=== PATIENT | female | born 1950 | race Hispanic/Latino ===

== ENCOUNTER 2016-11-24 06:24 | Inpatient (IN) | payer MEDICARE, OTHER ==
--- NOTE | 2016-11-24 07:40 | CP.PCM.HP ---
History of Present Illness - History of Present Illness History of Present Illness: PCP: Dr Frye Chief complaint: Painful right shoulder HPI: 66 years old female with hx of HLD and Right total shoulder replacement comes for an elective Revision of the Right Total shoulder replacement. She refers some pain to the right shoulder, no fever, SOB, chest pain, nausea, vomits nor diarrhea. PMH: HLD; Cataract of the right eye;Arthritis, Back pain PSH: Cesarian Section X3; Cholecystectomy; Rotator cuff repair right shoulder SH; No smoking of cigarettes; Occasional Alcohol; no illegal drug use; live with family; FH: Unknown Family Hx Allergies: NKDA Present on Admission - Present on Admission Any Indicators Present on Admission: No History of DVT/PE: No History of Uncontrolled Diabetes: No Urinary Catheter: No Decubitus Ulcer Present: No Review of Systems - Constitutional Constitutional: absent: Anorexia, Chills, Fever, Lethargy - EENT Eyes: Requires Corrective Lenses. absent: Diplopia, Floaters, Sees Flashes Ears: absent: Decreased Hearing, Ear Discharge, Ear Pain, Tinnitus Nose/Mouth/Throat: absent: Epistaxis, Nasal Congestion, Nasal Discharge, Sinus Pain, Sinus Pressure - Cardiovascular Cardiovascular: absent: Chest Pain, Dyspnea, Edema - Respiratory Respiratory: absent: Cough, Dyspnea, Wheezing, Chest Congestion - Gastrointestinal Gastrointestinal: absent: Constipation, Diarrhea, Melena, Nausea, Vomiting - Genitourinary Genitourinary: absent: Dysuria, Flank Pain, Hematuria, Urinary Frequency - Musculoskeletal Musculoskeletal: absent: Back Pain, Neck Pain Additional comments: Pain to the right shoulder - Integumentary Integumentary: absent: Pruritus, Rash, Skin Ulcer, Sores, Striae, Swelling - Neurological Neurological: absent: Confusion, Dizziness, Focal Weakness, Weakness - Psychiatric Psychiatric: absent: Anxiety, Depression, Panic Attacks - Endocrine Endocrine: absent: Palpitations, Polydipsia, Polyphagia, Polyuria - Hematologic/Lymphatic Hematologic: absent: Easy Bleeding, Easy Bruising Past Patient History - Past Medical History & Family History Past Medical History?: Yes - Past Social History Smoking Status: Never Smoked Chewing Tobacco Use: Yes Alcohol: Social Drugs: Denies Home Situation {Lives}: With Family - CARDIAC Hx Cardiac Disorders: Yes Hx Hypercholesterolemia: Yes - PULMONARY Hx Respiratory Disorders: No - NEUROLOGICAL Hx Neurological Disorder: No - HEENT Hx HEENT Problems: Yes Hx Cataracts: Yes (O.D) - RENAL Hx Chronic Kidney Disease: No - ENDOCRINE/METABOLIC Hx Endocrine Disorders: No - HEMATOLOGICAL/ONCOLOGICAL Hx Blood Disorders: No - INTEGUMENTARY Hx Dermatological Problems: No - MUSCULOSKELETAL/RHEUMATOLOGICAL Hx Musculoskeletal Disorders: Yes Hx Arthritis: Yes Hx Back Pain: Yes Hx Osteoarthritis: Yes Other/Comment: LIMIT JOINT MOTION .HERNIATED DISC - GASTROINTESTINAL Hx Gastrointestinal Disorders: No - GENITOURINARY/GYNECOLOGICAL Hx Genitourinary Disorders: No - PSYCHIATRIC Hx Psychophysiologic Disorder: No - SURGICAL HISTORY Hx Surgeries: Yes Hx Section: Yes (X4) Hx Cholecystectomy: Yes Hx Orthopedic Surgery: Yes (ROTATOR CUFF REPAIR RIGHT SHOULDER) Other/Comment: HERNIATED DISC RIGHT SIDE X3 - ANESTHESIA Hx Anesthesia: Yes Hx Anesthesia Reactions: No Hx Malignant Hyperthermia: No Has any member of the family had a problem w/ anesthesia?: No Meds Allergies/Adverse Reactions: Allergies Allergy/AdvReac Type Severity Reaction Status Date / Time No Known Allergies Allergy Verified 11/11/16 14:17 Physical Exam - Constitutional Appears: No Acute Distress - Head Exam Head Exam: ATRAUMATIC - Eye Exam Eye Exam: EOMI, Normal appearance Pupil Exam: NORMAL ACCOMODATION, PERRL - ENT Exam ENT Exam: Mucous Membranes Moist, Normal Exam, Normal External Ear Exam, Normal Oropharynx - Neck Exam Neck exam: Positive for: Full Rom, Normal Inspection. Negative for: Lymphadenopathy, Tenderness - Respiratory Exam Respiratory Exam: Clear to Auscultation Bilateral. absent: Rales, Rhonchi, Wheezes - Cardiovascular Exam Cardiovascular Exam: REGULAR RHYTHM, RRR, +S1, +S2. absent: JVD - GI/Abdominal Exam GI & Abdominal Exam: Normal Bowel Sounds, Soft. absent: Mass, Tenderness - Rectal Exam Rectal Exam: Deferred - Extremities Exam Extremities exam: Positive for: normal inspection. Negative for: calf tenderness, joint swelling, tenderness - Back Exam Back exam: NORMAL INSPECTION. absent: CVA tenderness (L), CVA tenderness (R) - Neurological Exam Neurological exam: Alert, CN II-XII Intact, Oriented x3, Reflexes Normal - Psychiatric Exam Psychiatric exam: Normal Affect, Normal Mood - Skin Skin Exam: Dry, Intact, Normal Color, Warm Results - Vital Signs Recent Vital Signs: Last Vital Signs Temp 98.4 F 11/24/16 07:34 Pulse 80 08/24/17 07:34 Resp 18 11/24/16 07:34 BP 143/85 11/24/16 07:34 Pulse Ox 98 11/24/16 07:34 - Labs Labs: PND Assessment & Plan - Assessment and Plan (Free Text) Plan: 66 years old female with hx of HLD and Right total shoulder replacement comes for an elective Revision of the Right Total shoulder replacement. She refers some pain to the right shoulder, no fever, SOB, chest pain, nausea, vomits nor diarrhea. #. Painful right Shoulder for Elective Right Total Shoulder replacement revision - Consult Orth[facility]edia Dr Bustamante - Pain management #. DVT Prophylaxis Post surgery #. HLD - lipitor #. DVT prophylaxis post surgery #. Code Scale: Full - Date & Time Date: 11/24/16 Time: 07:40
[2016-11-24] MEDS ORDERED: Liquid Adhesive TOP ONE (07:48)
[2016-11-24] MEDS ORDERED: Bacitracin Ointment 30 GM TUBE ONE (07:48)
[2016-11-24] MEDS ORDERED: Thrombin Topical 5,000 IU Spray Kit ONE (07:49)
[2016-11-24] MEDS ORDERED: Absorbable Gelatin Sponge Size 100 ONE (07:49)
[2016-11-24] MEDS ORDERED: EPINEPHrine 1 mg/ml (1:1000) Inj ONE (07:49)
[2016-11-24] MEDS ORDERED: Lactated Ringer's 1,000 ML IV ONE ×3 (08:00→16:30)
[2016-11-24 10:55] LABS: RBC URINE 3 /hpf (0-3); URINE BACTERIA FEW (<OCC); URINE BILIRUBIN NEGATIVE (NEGATIVE); URINE BLOOD NEGATIVE (NEGATIVE); URINE COLOR YELLOW (YELLOW); URINE GLUCOSE (UA) NEG (Normal); URINE KETONE NEGATIVE (NEGATIVE); URINE LEUKOCYTE ESTERASE LARGE Leu/uL (Negative); URINE PROTEIN 30 mg/dL (NEGATIVE); URINE UROBILINOGEN 0.2-1.0 mg/dL (0.2-1.0); WBC CLUMPS MANY /hpf; WBC URINE 1034 /hpf (0-5)
[2016-11-24] MEDS ORDERED: Propofol 10 mg/ml Inj (20 ML) ONE ×2 (11:05→15:57)
[2016-11-24] MEDS ORDERED: Midazolam 2 MG/2 ML VIAL ONE (11:06)
[2016-11-24] MEDS ORDERED: Rocuronium 10 mg/ml (5 ml) ONE ×2 (11:06→13:59)
[2016-11-24] MEDS ORDERED: Sodium Chloride 0.9% 1,000 ML IV ONE (13:00)
[2016-11-24] MEDS ORDERED: EPINEPHrine 1 mg/ml (1:1000) Inj IV ONE (13:58)
[2016-11-24] MEDS ORDERED: Dexamethasone 4 mg/1 ml ONE (14:08)
[2016-11-24] MEDS ORDERED: Sevoflurane - Inhalation Anesthetic Liq (250 ml) ONE (14:10)
[2016-11-24] MEDS ORDERED: Neostigmine Methylsulfate 3mg/3ml Syringe IV ONE (15:26)
[2016-11-24] MEDS ORDERED: Neostigmine Methylsulfate 2 MG/2 ML ML IV ONE (15:26)
[2016-11-24] MEDS ORDERED: HYDROmorphone 0.5 mg/0.5 ml ISec ONE (16:41)
[2016-11-24] MEDS ORDERED: HYDROmorphone 0.5 mg/0.5 ml ISec IVP ONE ×2 (16:45→17:15)
[2016-11-24] MEDS ORDERED: HYDROmorphone 0.5 mg/0.5 ml ISec IVP PRN (16:55)
[2016-11-24] MEDS ORDERED: DiphenhydrAMINE 50 mg/ml Inj IVP PRN (16:55)
--- NOTE | 2016-11-24 16:55 | PCM.ANESB1 ---
Interscalene Block - Brachial Plexus Date of Procedure: 11/24/16 Anesthesiologist: mathew Pre-Procedure Diagnosis: djd/oa s/p right total shoulder Post-Procedure Diagnosis: same Procedure Performed: Interscalene Block of Brachial Plexus Right - Procedure Interscalene Block of Brachial Plexus: This procedure was explained to the patient that it is for post-operative pain management. Consent was obtained after a thorough discussion with the patient regarding the benefits and possible complications of local anesthetic block of the Brachial Plexus at the Interscalene area. The patient was brought to the Operating Room and standard monitors were applied. Time out was held with the circulating nurse to confirm the correct surgery and appropriate block. The patient's head was gently rotated away from the ___r___operative shoulder and the anterior scalene groove was carefully palpated. The ultrasound transducer was then applied to the skin in the transverse plane and the brachial plexus was visualized lateral to the carotid artery and in between the anterior and middle scalene muscles. After identification,the anterior lateral portion of the neck was prepped with Betadine solution three times. At this point, a # 22 gauge Stimuplex 2 inches insulated needle was inserted into the interscalene groove and directed in a caudal and midline direction. The needle was inserted lateral to the ultrasound transducer in-plane towards the brachial plexus in a [id number] direction. Needle advancement was performed carefully under direct ultrasound visualization. After repeated negative aspiration,___20__cc of ,__.5% bupi were injected Under ultrasound guidance the local anesthetics were observed surrounding the roots of the brachial plexus. The needle was removed intact and sterile dressing was applied. The patient had stable vital signs, was conscious and in no apparent distress. The patient tolerated the interscalene block of the bracheal plexus well with stable vital signs.
[2016-11-24] MEDS ORDERED: ceFAZolin 2 GM in Sodium Chloride 0.9% 100 ML IVPB SCH (17:00)
--- NOTE | 2016-11-24 17:17 | RAD ---
PROCEDURE: Right shoulder dated 11/24/2016 HISTORY: post op COMPARISON: No prior study available comparison TECHNIQUE: Single AP erect view of the right shoulder performed. FINDINGS: Patient is status right total right shoulder arthroplasty. There is satisfactory alignment. Postoperative changes include infiltration and subcutaneous air. Overlying skin elodia are present. IMPRESSION: Status post right total right shoulder arthroplasty with satisfactory alignment. Additionally, unremarkable postoperative changes as detailed above.
--- NOTE | 2016-11-24 18:41 | PCM.SURG1 ---
Surgeon's Initial Post Op Note - Surgeon's Notes Surgeon: Robby Spring Floor Service Worker: SEBASTIAN Oquendo/2nd assist Bashir Zee Type of Anesthesia: General Endo, Block Regional Anesthesia Administered By: Dr Altamirano Pre-Operative Diagnosis: Severe arthritis R shoulder (rotator cuff arthropathy) . retained hardware- s/p failed shoulder surgery Operative Findings: as above Post-Operative Diagnosis: same Operation Performed: R Total shoulder replacement. repair R Rotataor cuff. Biceps tenodesis. removal foreign body (deep). arthrotomy/excision glenoid labral tear. Operative in dication: Rosaline Leija is a 66 yo female with severe pain and rstricted ROM R shoulder. Pt is refractory to conservatyive approach, consisiting of Nasiads, activity modification and therapy. Pt had failed rotator cuff repair 7 yhrs ago and now has posttraumatic O/A/rotator cuff arthroparthy R shoulder. Operative procedure: after having obtained informed consent/after thoroughly discussing pros/cons risks and benefits of surgical approach, possibility of mechanical failure, thromboembolic diease, stiffness nerve damage, the pt identiufied as Rosaline Leija is placed in the modified bose chair position. All bony prominences are well padded. It should be noted that the pt presented to the ofc with a high riding humeral head and evidence of humeral subluxation, and partial axillary nerve injury. Pt demands shoulder replacement at this point in time. After the satisfactory induction of GETA/ regional block; after having identified side/site and procedure in critical pause/time out, after having obtained informed consent, after steriley prepping and draping, the Right upper ext is prepped and draped and positioned for Shoulder replacement surgey. An incision is described from the distal 1/3 of the clavicle to the deltoid tuberosity. The pt presents with a high riding humeral head/ stron gly positive fluid sign, and severe pain and restricted ROM with crepitus. The skin incision is insufflated with a solution of epi and saline. The skin incision is insufflated with same. Skin incision is carried down thru skin and subcutaneous tissue. DEeltopectoral interval is identified with the upper ext in external rotation. The interval is developed; the clavipectoral fascia is identiifed. and the modified pediatric zuri retractor is placed deep to the strap muscles. With the radha in external rotation, an incision is accomplished 1 cm medial to lesser tuberosity. lower subscapular vessels are cauterized. with external rotation,with great care taken to protect the axillary nerve, the humeral head is disclocated. There are found to be marked contractures. The intamedullary canal is found and the IM cuttiung guide is placed in the appropriated retroversion.. Humeral osteotomy is accomplished, and the plate is applied to protect the cut surface. In real time the osteotomy is accomplished with consideration to the long standing high riding humeral head. the glenohumeral arthrotomy is accomplished , and the glenoid labrum is excised. The glenoid is exposed with posterior capsular release;sequential reaming is accomplished with the reamer and the marito / Steam Power Plant Operator hole is drilled and the size small glenoid component is impacted. Drilling is acdcomplished and the two screws are placed in the glenoid componeent- 20mm superiorly and 25 mm inferiorly. Next the glenosphere is impacted, and held with the screw. The humerus is next exposed, again with great care to avoid injury to the axillary nerve. sequential remaing is carried out to size 17 humeral component. Trialing is accomplished after the proximal humerus is reamed to accept the componeent. TRialing is accomplished witha +3 poly. Stability is fopund to be excellent, with excellt and acceptble ROM.. Broach is removed and the humeral component is impacted into the humeral canal. the +3 poly in sert is employed, the shoulder is reduced, and the stability is found to be excellent. Rotator cuff is rfepaired with interrupted fiber wire. It should be noted that the previous anchor is identiified which was used to repair the rotator cuff. The biceps long head is tenodesed to the rotator cuff repair. wound is thoroughly irrigated, closure is in layers #0 quill, followed by 0-quill anbd elodia for skin.. Shoulder immobilizer is applied and popst op xrays- reveal excellent position of construct Specimen/Specimens Removed: cartilage/bone/tendon Estimated Blood Loss: EBL {In ML}: 35 Blood Products Given: N/A Drains Used: No Drains Post-Op Condition: Good Date of Surgery/Procedure: 11/24/16 Time of Surgery/Procedure: 13:55 (time in room/anaesthesia indcution time - 12: 58)
[2016-11-24] MEDS: ceFAZolin 2 GM in Sodium Chloride 0.9% 100 ML IVPB SCH (21:26)
[2016-11-25] MEDS: ceFAZolin 2 GM in Sodium Chloride 0.9% 100 ML IVPB SCH (05:01)
[2016-11-25] MEDS: Lactated Ringer's 1,000 ML IV SCH ×2 (05:03→16:55)
--- NOTE | 2016-11-25 07:48 | CP.PCM.PN ---
Subjective - Date & Time of Evaluation Date of Evaluation: 11/25/16 Time of Evaluation: 07:50 - Subjective Subjective: S- pt comfortable with minimal post op discomfort Objective - Vital Signs/Intake and Output Vital Signs (last 24 hours): Temp Pulse Resp BP Pulse Ox 98.3 F 70 18 122/64 97 11/25/16 05:00 11/25/16 05:00 11/25/16 05:00 11/25/16 05:00 11/25/16 05:00 - Medications Medications: Current Medications Diphenhydramine HCl (Benadryl) 25 mg IVP Q6 PRN PRN Reason: Itching / Pruritus Hydromorphone HCl (Dilaudid 0.2 Mg/Ml Public Health Policy Analyst) 0 mg IV PRN PRN; Protocol PRN Reason: Pain, severe (8-10) Last Admin: 11/25/16 06:34 Dose: 6 mg Lactated Ringer's (Lactated Ringer's) 1,000 mls @ 30 mls/hr IV .Q24H DC Last Admin: 11/25/16 05:03 Dose: 30 mls/hr Ondansetron HCl (Zofran Inj) 4 mg IVP Q8 PRN PRN Reason: Nausea/Vomiting - Additional Findings Additional findings: Objective 'stance/gait- defrred R upper ext immobilizer intact N/V intact no gross deficits orthopedically stable Xrays- reveal acceptable position of construct Assessment and Plan - Assessment and Plan (Free Text) Assessment: A- S/P r tOTAL SHOULDER REPLACEMNT p ORTHOPEDICALLY STABLE NWB R upper ext post op xrays- excellent position of construct
[2016-11-25 09:23] VITALS: RESP 20
--- NOTE | 2016-11-25 10:17 | CP.PCM.PN ---
Subjective - Date & Time of Evaluation Date of Evaluation: 11/25/16 Time of Evaluation: 10:14 - Subjective Subjective: Pt seen examined bedside. doing well pain controlled on CLINICAL UNIT COORDINATOR change to PO meds today 3 days and d/c to [facility] for PT today HD stable NAD NO OTHER COMPLAINTS Objective - Vital Signs/Intake and Output Vital Signs (last 24 hours): Temp Pulse Resp BP Pulse Ox 98.3 F 81 20 115/74 99 11/25/16 09:00 11/25/16 09:00 11/25/16 09:00 11/25/16 09:00 11/25/16 09:00 GEN: WDWN, ALERT, COOPERATIVE HEENT: NCAT, PERRL, EOMI HEART: +S1+S2, RRR NO MRG LUNG: CTAB, NO WRR ABD: SOFT BSX4 NT ND NO HSM NO MASS EXT: SHOULDER IMMOBILIZED. NV INTACT. WARM, WELL PERFUSED NEURO: AA0X3, SENSATION EQUAL AND BILATERAL SKIN: WARM DRY PSYCH: NORMAL MOOD NORMAL AFFECT - Medications Medications: Current Medications Diphenhydramine HCl (Benadryl) 25 mg IVP Q6 PRN PRN Reason: Itching / Pruritus Enoxaparin Sodium (Lovenox) 40 mg SC DAILY DC PRN Reason: Protocol Hydromorphone HCl (Dilaudid 0.2 Mg/Ml Gear Technician) 0 mg IV PRN PRN; Protocol PRN Reason: Pain, severe (8-10) Last Admin: 11/25/16 06:34 Dose: 6 mg Lactated Ringer's (Lactated Ringer's) 1,000 mls @ 30 mls/hr IV .Q24H [facility] Last Admin: 11/25/16 05:03 Dose: 30 mls/hr Ondansetron HCl (Zofran Inj) 4 mg IVP Q8 PRN PRN Reason: Nausea/Vomiting Assessment and Plan - Assessment and Plan (Free Text) Plan: 66 years old female with hx of HLD and Right total shoulder replacement comes for an elective Revision of the Right Total shoulder replacement. She refers some pain to the right shoulder, no fever, SOB, chest pain, nausea, vomits nor diarrhea. Right Total Shoulder - Consult Orthopedic Surgeon Dr Bustamante - Pain management - DVT Prophylaxis Lovenox 40 mg daily per surgery - Cardio Consult Dr. Phillips - Type and Cross - IC - PT - 3 nights and [facility] continue lipitor #. DVT prophylaxis post surgery #. Code Scale: Full
--- NOTE | 2016-11-25 10:43 | PQF GENQUE ---
This form is a permanent part of the medical record 11/25/16 Dr. Ramon Gage, Nursing note of 11/24/16 @2019: c/ o discomfort and urge but unable to urinate. Bladder scan= [address] Mack with orders to straight cath and sent urine for c/s. Would you please clarify if there is an associated diagnosis to go along with the inability to void or not. Clarification of your documentation is requested to better reflect the severity of illness and intensity of treatment of your patient. Indicators present [] Specify: [] [] Specify: [] [] Specify: [] [] Specify: [] Location in the medical record that reflects the above clinical findings: [] Treatment Provided: [] PHYSICIAN'S RESPONSE Based on your medical judgment of the clinical indicators outlined above please clarify the following: [X ] Practitioner response UTI [] If unable to determine, please check the box, sign and date. Present On Admission (POA) Indicator: [X] Present at the time of admission [] Not present at the time of admission [] Clinically Undetermined In responding to this query, please exercise your independent professional judgment. The fact that a question is asked does not imply that any particular answer is desired or expected. Thank you for your clarification on this documentation. If you have any questions please call:[phone] * Thank you, Yeni Curry RN [facility]
--- NOTE | 2016-11-25 11:07 | CP.PCM.CON ---
History of Present Illness - History of Present Illness History of Present Illness: THE PATIENT IS A 66 YEAR OLD FEMALE WHO HAD A TOTAL RIGHT SHOULDER REPLACEMENT YESTERDAY. SHE HAD A FAILED PRIOR RIGHT SHOULDER SURGERY. SHE ALSO HAS A HISTORY OF HYPERLIPIDEMIA. SHE DENIES CAD, CHEST PAIN, HYPERTENSION OR OTHER SERIOUS MEDICAL PROBLEM. CARDIOLOGY WAS ASKED TO SEE AND FOLLOW THE PATIENT. Past Patient History - Past Medical History & Family History Past Medical History?: Yes - Past Social History Smoking Status: Never Smoked Chewing Tobacco Use: Yes Alcohol: Social Drugs: Denies Home Situation {Lives}: With Family - CARDIAC Hx Cardiac Disorders: Yes Hx Hypercholesterolemia: Yes - PULMONARY Hx Respiratory Disorders: No - NEUROLOGICAL Hx Neurological Disorder: No - HEENT Hx HEENT Problems: Yes Hx Cataracts: Yes (O.D) - RENAL Hx Chronic Kidney Disease: No - ENDOCRINE/METABOLIC Hx Endocrine Disorders: No - HEMATOLOGICAL/ONCOLOGICAL Hx Blood Disorders: No - INTEGUMENTARY Hx Dermatological Problems: No - MUSCULOSKELETAL/RHEUMATOLOGICAL Hx Musculoskeletal Disorders: Yes Hx Arthritis: Yes Hx Back Pain: Yes Hx Osteoarthritis: Yes Other/Comment: LIMIT JOINT MOTION .HERNIATED DISC - GASTROINTESTINAL Hx Gastrointestinal Disorders: No - GENITOURINARY/GYNECOLOGICAL Hx Genitourinary Disorders: No - PSYCHIATRIC Hx Psychophysiologic Disorder: No - SURGICAL HISTORY Hx Surgeries: Yes Hx Section: Yes (X4) Hx Cholecystectomy: Yes Hx Orthopedic Surgery: Yes (ROTATOR CUFF REPAIR RIGHT SHOULDER) Other/Comment: HERNIATED DISC RIGHT SIDE X3 - ANESTHESIA Hx Anesthesia: Yes Hx Anesthesia Reactions: No Hx Malignant Hyperthermia: No Has any member of the family had a problem w/ anesthesia?: No Meds Allergies/Adverse Reactions: Allergies Allergy/AdvReac Type Severity Reaction Status Date / Time No Known Allergies Allergy Verified 11/11/16 14:17 - Medications Medications: Current Medications Diphenhydramine HCl (Benadryl) 25 mg IVP Q6 PRN PRN Reason: Itching / Pruritus Enoxaparin Sodium (Lovenox) 40 mg SC DAILY DC PRN Reason: Protocol Hydromorphone HCl (Dilaudid 0.2 Mg/Ml Billet Driller) 0 mg IV PRN PRN; Protocol PRN Reason: Pain, severe (8-10) Last Admin: 11/25/16 06:34 Dose: 6 mg Lactated Ringer's (Lactated Ringer's) 1,000 mls @ 30 mls/hr IV .Q24H [facility] Last Admin: 11/25/16 05:03 Dose: 30 mls/hr Ondansetron HCl (Zofran Inj) 4 mg IVP Q8 PRN PRN Reason: Nausea/Vomiting Physical Exam - Respiratory Exam Respiratory Exam: Clear to Auscultation Bilateral - Cardiovascular Exam Cardiovascular Exam: REGULAR RHYTHM, +S1, +S2 - Extremities Exam Additional comments: NO LE EDEMA - Additional Findings Additional findings: NO LABS IN EMR-THEY WERE DONE PAT EXAMS Results - Vital Signs Recent Vital Signs: Last Vital Signs Temp 98.3 F 11/25/16 09:00 Pulse 81 11/25/16 09:00 Resp 20 11/25/16 09:00 BP 115/74 11/25/16 09:00 Pulse Ox 99 11/25/16 09:00 Assessment & Plan - Assessment and Plan (Free Text) Assessment: S/P RIGHT TOTAL SHOULDER REPLACEMENT HYPERLIPIDEMIA Plan: CONTINUE PAIN MEDS AND LOVENOX
[2016-11-25] MEDS ORDERED: Oxycodone/Acetaminophen 5/325 mg Tab PO PRN ×2 (12:24)
[2016-11-25] MEDS ORDERED: Tmp-Smz 800 mg-160 mg DS Tab PO SCH (13:00)
[2016-11-25 14:49] LABS: MEAN CELL VOLUME 91.3 fl (81.0-99.0); MEAN CORPUSCULAR HGB CONC 31.7 g/dL (33.0-37.0); RED CELL DISTRIBUTION WIDTH 14.7 % (11.5-14.5); WHITE BLOOD COUNT 10.9 K/uL (4.8-10.8)
--- NOTE | 2016-11-25 14:58 | CP.PCM.DIS ---
Provider - Provider Date of Admission: 11/24/16 09:21 Attending physician: Juan Diego Mack Primary care physician: Sam Bustamante III, MD Time Spent in preparation of Discharge (in minutes): 30 Hospital Course - Lab Results Lab Results: Most Recent Lab Values Urine Color Yellow (YELLOW) 11/24/16 10:39 Urine Clarity Turbid (Clear) 11/24/16 10:39 Urine pH 6.0 (5.0-8.0) 11/24/16 10:39 Ur Specific [place] 1.021 (1.003-1.030) 11/24/16 10:39 Urine Protein 30 mg/dL (NEGATIVE) 11/24/16 10:39 Urine Glucose (UA) Neg mg/dL (Normal) 11/24/16 10:39 Urine Ketones Negative mg/dL (NEGATIVE) 11/24/16 10:39 Urine Blood Negative (NEGATIVE) 11/24/16 10:39 Urine Nitrate Negative (NEGATIVE) 11/24/16 10:39 Urine Bilirubin Negative (NEGATIVE) 11/24/16 10:39 Urine Urobilinogen 0.2-1.0 mg/dL (0.2-1.0) 11/24/16 10:39 Ur Leukocyte Esterase Large Micki/uL (Negative) 11/24/16 10:39 Urine RBC (Auto) 3 /hpf (0-3) 11/24/16 10:39 Urine WBC Clumps (Auto) Many /hpf (NONE) H 11/24/16 10:39 Urine Microscopic WBC 1034 /hpf (0-5) H 11/24/16 10:39 Urine Bacteria Few (<OCC) H 11/24/16 10:39 Blood Type A POSITIVE 11/24/16 06:35 Blood Type Confirm A POSITIVE 11/24/16 09:00 Antibody Screen Negative 11/24/16 06:35 Crossmatch See Detail 11/24/16 06:35 BBK History Checked No verified bt 11/24/16 06:35 - Hospital Course Hospital Course: 66 years old female with hx of HLD and Right total shoulder replacement comes for an elective Revision of the Right Total shoulder replacement. She refers some pain to the right shoulder, no fever, SOB, chest pain, nausea, vomits nor diarrhea. Patient tolerated surgery well. Was seen by Physical therapy [place], may be dischargd home with outpT PT. Follow up with Dr. Bustamante. Right Total Shoulder - Consult Orthopedic Surgeon Dr Bustamante - Pain management - DVT Prophylaxis Lovenox 40 mg daily per surgery - Cardio Consult Dr. Phillips - IC - PT UTI - +UA FOR LARGE LE BACTRIM DS HLD continue lipitor #. DVT prophylaxis post surgery #. Code Scale: Full Discharge Exam - Head Exam Head Exam: ATRAUMATIC Additional comments: Vitals stable and reviewed GEN: WDWN, alert, cooperative HEENT: NCAT, PERRL, EOMI Neck: supple, no lymphadenopathy CARDIO: +S1S2, RRR, NO M/R/G LUNG: CTAB, NO W/R/R ABD: soft, NT, ND, no masses, no HSM EXT: no edema, pedal pulses shoulder immobilizer Neuro: AAOx3, Strength equal, bilateral UE/LE Psych: normal mood, normal affect Discharge Plan - Discharge Medications Prescriptions: Atorvastatin [Lipitor] 20 mg PO DAILY #30 tab oxyCODONE/Acetaminophen [Percocet 5/325 mg Tab] 1 tab PO Q4 PRN #20 tab PRN Reason: Pain, Mild (1-3) Sulfamethoxazole/Trimethoprim [Bactrim DS Tab] 1 tab PO Q12 #10 tab - Follow Up Plan Condition: GOOD Disposition: HOME/ ROUTINE Additional Instructions: FOLLOW UP WITH DR. BUSTAMANTE WITHIN ONE WEEK FOLLOW UP WITH PCP IN ONE WEEK BACTRIM FOR UTI RETURN TO ER IF CONDITION WORSENS Referrals: Sam Bustamante III, MD [Primary Care Provider] -
[2016-11-25 14:59] LABS: ALB/GLOB RATIO 1.3 (1.0-2.1); BILIRUBIN,TOTAL 0.3 mg/dl (0.2-1.3); CALCIUM 8.5 mg/dL (8.4-10.2); POTASSIUM 3.9 MMOL/L (3.6-5.0); TOTAL PROTEIN 6.5 G/DL (6.3-8.2)
[2016-11-25 16:47] VITALS: BP 120/72; PULSE 72; TEMP 99.2; O2SAT 95
[2016-11-25] MEDS ORDERED: Enoxaparin 40 mg Syringe SC SCH (17:00)
== END 2016-11-25 17:25 | disposition home or self-care (01) | DRG 483 ==
LOC: H.OPSURG 06:24 → H.MEDSURG1 09:21
PROVIDERS: ADMIT Internal Medicine; ATTEND Internal Medicine
PROC: 0LQ10ZZ Repair Right Shoulder Tendon, Open Approach (ICD-10-PCS; 2016-11-24)
PROC: 0RCJ0ZZ Extirpation of Matter from Right Shoulder Joint, Open Approach (ICD-10-PCS; 2016-11-24)
PROC: 3E0T3BZ Introduction of Anesthetic Agent into Peripheral Nerves and Plexi, Percutaneous Approach (ICD-10-PCS; 2016-11-24)
PROC: 0RRJ0JZ Replacement of Right Shoulder Joint with Synthetic Substitute, Open Approach (ICD-10-PCS; principal; 2016-11-24 11:15)
PROC: 0LS30ZZ Reposition Right Upper Arm Tendon, Open Approach (ICD-10-PCS; 2016-11-24 11:15)
DX: M19.111 Post-traumatic osteoarthritis, right shoulder (principal); T81.590A Other complications of foreign body accidentally left in body following surgical operation, initial encounter; N39.0 Urinary tract infection, site not specified; E78.5 Hyperlipidemia, unspecified; T14.90 Injury, unspecified; Z96.611 Presence of right artificial shoulder joint; Y79.2 Prosthetic and other implants, materials and accessory orthopedic devices associated with adverse incidents